=== PATIENT | male | born 2005 | race African-American/Black ===

== ENCOUNTER 2024-11-09 14:11 | Emergency (ER) | payer SELFPAY ==
[2024-11-09] MEDS ORDERED: IBUPROFEN 400 MG TAB ONE (14:13)
[2024-11-09] MEDS ORDERED: IBUPROFEN 200 MG TAB PO ONE (14:13)
--- NOTE | 2024-11-09 15:55 | RAD REPORT ---
EXAMINATION: XR Foot Right 3 View CLINICAL INDICATION: Male, 19 years old. [facility] MA[facility] PAIN Bed Name: [facility] TECHNIQUE: 3 view radiographs of the left foot were obtained. COMPARISON: No prior exam. FINDINGS: No evidence of fracture or dislocation. Normal alignment. Small sclerotic focus within the head of the fifth metatarsal suggesting small bone island. No evidence of arthropathy or other focal bone lesion. Soft tissues are unremarkable. No soft tissue swelling. No significant degenerativ e changes. IMPRESSION: No acute or significant abnormalities.
--- NOTE | 2024-11-09 16:04 | ER ---
Nurse's Notes [facility] Name: Nara Blanco Age: 19 yrs Sex: Male : 2005 Arrival Date: 11/09/2024 Time: 14:11 Bed 11 Private MD: Diagnosis: Pain in right toe(s) Presentation: 11/09 14:21 Chief complaint: EMS states: Tripped playing volleyball, c/o pain to R foot, worse in ph big toe. Coronavirus screen: Vaccine status: Patient reports being unvaccinated. Ebola Screen: No symptoms or risks identified at this time. Initial Sepsis Screen: Does the patient meet any 2 criteria? No. Patient's initial sepsis screen is negative. Does the patient have a suspected source of infection? No. Patient's initial sepsis screen is negative. Risk Assessment: Do you want to hurt yourself or someone else? Patient reports no desire to harm self or others. Onset of symptoms was November 09, 2024. 14:21 Method Of Arrival: EMS: [facility] 14:21 Acuity: ERLIN 4 ph Triage Assessment: 14:24 General: Appears in no apparent distress. Behavior is calm, cooperative. Pain: ph Complains of pain in right foot. Musculoskeletal: Circulation, motion, and sensation intact. Range of motion: intact in all extremities. 17:06 Injury Description: Bruise. ll1 Historical: - Allergies: 14:23 No Known Allergies; ph - PMHx: 14:23 None; ph - Immunization history:: Adult Immunizations unknown. - Infectious Disease History:: Denies. - Social history:: Smoking status: Patient denies any tobacco usage or history of. Screenin:24 [facility] ED Fall Risk Assessment (Adult) History of falling in the last 3 months, ph including since admission No falls in past 3 months (0 pts) Confusion or Disorientation No (0 pts) Intoxicated or Sedated No (0 pts) Impaired Gait No (0 pts) Mobility Assist Device Used No (0 pt) Altered Elimination No (0 pt) Score/Fall Risk Level 0 - 2 = Low Risk Oriented to surroundings, Maintained a safe environment, Hourly rounding (assess needs \T\ fall precautionary measures) done. Abuse screen: Denies threats or abuse. Denies injuries from another. Nutritional screening: No deficits noted. Tuberculosis screening: No symptoms or risk factors identified. Assessment: 16:16 Reassessment: No changes from previously documented assessment. Patient and/or family ll1 updated on plan of care and expected duration. Pain level reassessed. Patient is alert, oriented x 3, equal unlabored respirations, skin warm/dry/pink. Vital Signs: 14:21 BP 102 / 55; Pulse 68; Resp 18; Temp 97.6; Pulse Ox 100% on R/A; Weight 66.22 kg; ph Height 5 ft. 7 in. ; 14:21 Body Mass Index 22.87 (66.22 kg, 170.18 cm) ph ED Course: 14:13 Patient arrived in ED. kb 14:13 Daisy Matos FNP-C [facility]. kb 14:13 Mateus Haque MD is Attending Physician. kb 14:23 Triage completed. ph 14:24 Arm band placed on right wrist. ph 14:25 Patient has correct armband on for positive identification. ph 14:33 Foot Right 3 View XRAY In Process Unspecified. EDMS 16:16 Provided Education on: ER procedures and process. ll1 16:16 No provider procedures requiring assistance completed. Patient did not have IV access ll1 during this emergency room visit. Administered Medications: 14:35 Drug: Ibuprofen PO 600 mg PO once Route: PO; ph 17:06 Follow up: Response: No adverse reaction; Pain is decreased ll1 Medication: 14:25 VIS not applicable for this client. ph Outcome: 16:04 Discharge ordered by MD. kb 16:16 Patient left the ED. ll1 16:16 Discharged to home ambulatory, ll1 16:16 Condition: stable 16:16 Discharge instructions given to patient, Instructed on discharge instructions, follow up and referral plans. Demonstrated understanding of instructions, follow-up care, Signatures: Dispatcher [employer] EDMS Daisy Matos FNP-C FNP-Ckb Hall, Patricia RN RN ph Marlon Younger RN RN ll1
--- NOTE | 2024-11-09 16:04 | EDPHYS ---
Physician Documentation [facility] Name: Nara Blanco Age: 19 yrs Sex: Male : 2005 Arrival Date: 11/09/2024 Time: 14:11 Bed 11 Private MD: ED Physician Mateus Haque HPI: 11/09 15:17 This 19 yrs old Black Male presents to ER via EMS with complaints of Foot Injury. kb 15:17 Pt is a 19 year old male who presents for right great toe pain that started just tug captain. kb States he was running to get a ball and thinks his toe curled under his foot. Denies any other injuries or pain. Historical: - Allergies: 14:23 No Known Allergies; ph - PMHx: 14:23 None; ph - Immunization history:: Adult Immunizations unknown. - Infectious Disease History:: Denies. - Social history:: Smoking status: Patient denies any tobacco usage or history of. ROS: 15:17 Constitutional: As per HPI kb Exam: 15:17 Constitutional: This is a well developed, well nourished patient who is awake, alert, kb and in no acute distress. Head/Face: Normocephalic, atraumatic. ENT: Moist Mucous membranes Cardiovascular: Regular rate Respiratory: Respirations even and unlabored. No increased work of breathing. Talking in full sentences Skin: Warm, dry with normal turgor. Normal color. Neuro: Awake and alert, GCS 15, oriented to person, place, time, and situation. 15:17 Musculoskeletal/extremity: Extremities: grossly normal except: noted in the right first toe: decreased ROM, pain, tenderness, ROM: limited active range of motion due to pain, Circulation is intact in all extremities. Sensation intact. Vital Signs: 14:21 BP 102 / 55; Pulse 68; Resp 18; Temp 97.6; Pulse Ox 100% on R/A; Weight 66.22 kg; ph Height 5 ft. 7 in. ; 14:21 Body Mass Index 22.87 (66.22 kg, 170.18 cm) ph MDM: 14:13 Medical Screening Exam initiated kb 15:17 Differential diagnosis: dislocation, closed fracture, contusion. Data reviewed: vital kb signs, nurses notes. Historians other than the Patient: EMS: [facility]. 16:04 Counseling: I had a detailed discussion with the patient and/or guardian regarding the kb historical points, exam findings, and any diagnostic results supporting the discharge/admit diagnosis, radiology results, the need for outpatient follow up, a family practitioner, to return to the emergency department if symptoms worsen or persist or if there are any questions or concerns that arise at home. 11/09 14:13 Order name: Foot Right 3 View XRAY; Complete Time: 16:01 kb Administered Medications: 14:35 Drug: Ibuprofen PO 600 mg PO once Route: PO; ph 17:06 Follow up: Response: No adverse reaction; Pain is decreased ll1 Disposition: 17:00 Co-signature as Attending Physician, Mateus Haque MD I reviewed the patient's care rn provided by the Advanced Practice Provider and agree with the diagnosis and treatment plan. Disposition Summary: 11/09/24 16:04 Discharge Ordered Notes: Location: Home kb Condition: Stable kb Diagnosis - Pain in right toe(s) kb Followup: kb - With: Emergency Department - When: As needed - Reason: Worsening of condition Followup: kb - With: Private Physician - When: 2 - 3 days - Reason: Recheck today's complaints, Continuance of care, Re-evaluation by your physician Discharge Instructions: - Discharge Summary Sheet kb - Musculoskeletal Pain kb Forms: - Medication Reconciliation Form kb - Antibiotic Education kb - Prescription Opioid Use kb - Patient Portal Instructions kb - Leadership Thank You Letter kb Signatures: Dispatcher [employer] Daisy Ford, AUDELIA-C ROLL UP OPERATOR-Mateus Sahu MD MD rn Hall, Patricia, RN RN Marlon Sandoval RN ll1
[2024-11-09 16:42] VITALS: BP 102/55; TEMP 97.6; O2SAT 100
== END 2024-11-09 16:16 | disposition home or self-care (01) ==
LOC: ER 14:11
DX: M79.674 Pain in right toe(s) (principal)
CPT/HCPCS: 99283